=== PATIENT | female | born 1965 | race Caucasian/White ===

== ENCOUNTER 2022-07-23 14:53 | Emergency (ER) | payer OTHER ==
[2022-07-23] MEDS ORDERED: Sodium Chloride 0.9% 1,000 ML IV STA (15:20)
[2022-07-23] MEDS ORDERED: Ondansetron 4 MG/2 ML SDV IVPUSH ONE (15:20)
[2022-07-23] MEDS ORDERED: HYDROmorphone 0.5 MG/0.5 ML Syringe IVPUSH ONE (15:21)
[2022-07-23 15:39] LABS: BASOPHILS ABSOLUTE AUTO 0.02 K/mm3 (0.01-0.08); BASOPHILS PERCENT AUTO 0.2 % (0.1-1.2); EOSINOPHILS ABSOLUTE AUTO 0.02 K/mm3 (0.04-0.36); EOSINOPHILS PERCENT AUTO 0.2 (0.7-5.8); HEMATOCRIT 37.6 % (34.1-44.9); HEMOGLOBIN 12.3 gm/dl (11.2-15.7); IMMATURE GRAN ABSOLUTE AUTO 0.03 K/mm3 (0.00-0.10); IMMATURE GRAN PERCENT AUTO 0.3 % (<=1.0); LYMPHOCYTES ABSOLUTE AUTO 1.39 K/mm3 (1.18-3.74); LYMPHOCYTES PERCENT AUTO 11.7 % (19.3-51.7); MEAN CORPUSCULAR HEMOGLOBIN 28.2 pg (25.6-32.2); MEAN CORPUSCULAR HGB CONC 32.7 g/dl (32.2-35.5); MEAN CORPUSCULAR VOLUME 86.2 fl (79.4-94.8); MEAN PLATELET VOLUME 10.2 fl (9.4-12.3); MONOCYTES ABSOLUTE AUTO 0.51 K/mm3 (0.24-0.36); MONOCYTES PERCENT AUTO 4.3 % (4.7-12.5); NEUTROPHILS ABSOLUTE AUTO 9.94 K/mm3 (1.56-6.13); NEUTROPHILS PERCENT AUTO 83.3 % (34.0-71.1); PLATELET COUNT,PLT 315 K/mm3 (182-369); RED BLOOD CELL COUNT 4.36 M/mm3 (3.98-5.22); WHITE BLOOD CELL COUNT,WBC 11.91 K/mm3 (3.98-10.04)
[2022-07-23] MEDS: Sodium Chloride 0.9% 10 ML Syringe FLUSH PRN ×2 (15:47→15:53)
[2022-07-23] MEDS ORDERED: Iopamidol 612 MG/ML 100 ML Bottle IVPUSH ONE (15:52)
[2022-07-23 16:01] LABS: ALBUMIN 3.7 g/dl (3.4-5.0); BILIRUBIN TOTAL 0.4 mg/dL (0.2-1.0); BUN/CREATININE RATIO 14.3 (14-18); CALCIUM 9.1 mg/dL (8.5-10.1); CREATININE 1.4 mg/dL (0.55-1.02); EST CRCL DRUG DOSING (CG) 47.45 mL/min; PROTEIN TOTAL,TP 7.4 g/dl (6.4-8.2)
[2022-07-23] MEDS ORDERED: Famotidine 20 MG/2 ML SDV IVPUSH ONE (17:17)
[2022-07-23] MEDS ORDERED: Ketorolac 30 MG/ML SDV IVPUSH ONE (17:17)
[2022-07-23 17:55] LABS: APPEARANCE,URINE CLEAR (Clear); BILIRUBIN,URINE NEGATIVE (Negative); COLOR,URINE LIGHT YELLOW (Yellow); GLUCOSE,URINE NEGATIVE (Negative); KETONES,URINE NEGATIVE (Negative); LEUKOCYTE ESTERASE,URINE NEGATIVE (Negative); NITRITE,URINE NEGATIVE (Negative); OCCULT BLOOD,URINE 2+ (Negative); PROTEIN,URINE TRACE (Negative); UROBILINOGEN,URINE 0.2 (0.2-1.0)
[2022-07-23 18:07] LABS: BACTERIA,URINE FEW /hpf (FEW); MUCUS,URINE FEW /hpf (FEW); RBC,URINE 75-100 /hpf (0-5); SQUAMOUS EPITHELIAL CELLS,UR 0-5 /hpf (0-5); WBC,URINE 0-5 /hpf (0-5)
== END 2022-07-23 18:50 | disposition home or self-care (01) ==
LOC: JD.ED 14:53
DX: N13.2 Hydronephrosis with renal and ureteral calculous obstruction (principal); E11.9 Type 2 diabetes mellitus without complications; Z91.040 Latex allergy status; Z79.84 Long term (current) use of oral hypoglycemic drugs; Z79.899 Other long term (current) drug therapy; Z86.16 Personal history of COVID-19
CPT/HCPCS: 36415; 74177; 80053; 81001; 83690; 85025; 96361; 96374; 96375; 99284; J1170; J1885; J2405; J3490; J7030; Q9967

== ENCOUNTER 2022-07-25 16:40 | Emergency (ER) | payer OTHER ==
[2022-07-25 17:11] LABS: APPEARANCE,URINE CLEAR (Clear); BILIRUBIN,URINE NEGATIVE (Negative); COLOR,URINE YELLOW (Yellow); GLUCOSE,URINE 1+ (Negative); KETONES,URINE NEGATIVE (Negative); LEUKOCYTE ESTERASE,URINE TRACE (Negative); NITRITE,URINE NEGATIVE (Negative); OCCULT BLOOD,URINE 2+ (Negative); PROTEIN,URINE TRACE (Negative); UROBILINOGEN,URINE 0.2 (0.2-1.0)
[2022-07-25 17:23] LABS: BACTERIA,URINE MANY /hpf (FEW); RBC,URINE 30-40 /hpf (0-5); SQUAMOUS EPITHELIAL CELLS,UR 0-5 /hpf (0-5); WBC,URINE 50-75 /hpf (0-5)
[2022-07-25 17:24] LABS: MUCUS,URINE NOT SEEN /hpf (FEW)
[2022-07-25 17:46] LABS: BASOPHILS ABSOLUTE AUTO 0.02 K/mm3 (0.01-0.08); BASOPHILS PERCENT AUTO 0.2 % (0.1-1.2); EOSINOPHILS ABSOLUTE AUTO 0.03 K/mm3 (0.04-0.36); EOSINOPHILS PERCENT AUTO 0.2 (0.7-5.8); HEMATOCRIT 37.1 % (34.1-44.9); HEMOGLOBIN 12.1 gm/dl (11.2-15.7); IMMATURE GRAN ABSOLUTE AUTO 0.02 K/mm3 (0.00-0.10); IMMATURE GRAN PERCENT AUTO 0.2 % (<=1.0); LYMPHOCYTES ABSOLUTE AUTO 1.54 K/mm3 (1.18-3.74); LYMPHOCYTES PERCENT AUTO 11.7 % (19.3-51.7); MEAN CORPUSCULAR HEMOGLOBIN 28.2 pg (25.6-32.2); MEAN CORPUSCULAR HGB CONC 32.6 g/dl (32.2-35.5); MEAN CORPUSCULAR VOLUME 86.5 fl (79.4-94.8); MEAN PLATELET VOLUME 9.9 fl (9.4-12.3); MONOCYTES ABSOLUTE AUTO 1.05 K/mm3 (0.24-0.36); NEUTROPHILS ABSOLUTE AUTO 10.49 K/mm3 (1.56-6.13); NEUTROPHILS PERCENT AUTO 79.7 % (34.0-71.1); PLATELET COUNT,PLT 305 K/mm3 (182-369); RED BLOOD CELL COUNT 4.29 M/mm3 (3.98-5.22); WHITE BLOOD CELL COUNT,WBC 13.15 K/mm3 (3.98-10.04)
[2022-07-25] MEDS ORDERED: Sodium Chloride 0.9% 1,000 ML IV ONE (17:55)
[2022-07-25] MEDS ORDERED: Ondansetron 4 MG/2 ML SDV IVPUSH ONE (17:55)
[2022-07-25] MEDS ORDERED: HYDROmorphone 0.5 MG/0.5 ML Syringe IVPUSH ONE (17:55)
[2022-07-25 18:06] LABS: ALBUMIN 3.8 g/dl (3.4-5.0); ANION GAP 15.1 (5-15); BILIRUBIN TOTAL 0.6 mg/dL (0.2-1.0); BUN/CREATININE RATIO 10.6 (14-18); C-REACTIVE PROTEIN 4.3 mg/dL (<1.0); CALCIUM 8.9 mg/dL (8.5-10.1); CREATININE 1.7 mg/dL (0.55-1.02); EST CRCL DRUG DOSING (CG) 39.08 mL/min; POTASSIUM,K 4.1 mEq/L (3.5-5.1); PROTEIN TOTAL,TP 7.7 g/dl (6.4-8.2)
[2022-07-25 20:45] LABS: APPEARANCE,URINE CLEAR (Clear); BILIRUBIN,URINE NEGATIVE (Negative); COLOR,URINE YELLOW (Yellow); GLUCOSE,URINE 2+ (Negative); KETONES,URINE NEGATIVE (Negative); LEUKOCYTE ESTERASE,URINE NEGATIVE (Negative); NITRITE,URINE NEGATIVE (Negative); OCCULT BLOOD,URINE NEGATIVE (Negative); PROTEIN,URINE 1+ (Negative); UROBILINOGEN,URINE 0.2 (0.2-1.0)
[2022-07-25 20:57] LABS: BACTERIA,URINE MANY /hpf (FEW); MUCUS,URINE FEW /hpf (FEW); SQUAMOUS EPITHELIAL CELLS,UR 0-5 /hpf (0-5)
[2022-07-25] MEDS ORDERED: methylPREDNISolone Sodium Succinate 125 MG/2 ML SDV IVPUSH ONE (21:25)
== END 2022-07-25 22:09 | disposition home or self-care (01) ==
LOC: JD.ED 16:40
DX: N13.2 Hydronephrosis with renal and ureteral calculous obstruction (principal); E11.9 Type 2 diabetes mellitus without complications; Z86.16 Personal history of COVID-19; Z98.890 Other specified postprocedural states; Z91.040 Latex allergy status; Z79.899 Other long term (current) drug therapy; Z79.84 Long term (current) use of oral hypoglycemic drugs
CPT/HCPCS: 36415; 76775; 80053; 81001; 85025; 86140; 87086; 96361; 96374; 96375; 99284; J1170; J2405; J2930; J7030; 87088; 87186

== ENCOUNTER 2022-07-28 16:39 | Emergency (ER) | payer OTHER ==
[2022-07-28] MEDS ORDERED: HYDROmorphone 1 MG/ML Syringe IVPUSH STA (17:05)
[2022-07-28] MEDS ORDERED: Ondansetron 4 MG/2 ML SDV IVPUSH ONE (17:05)
[2022-07-28] MEDS ORDERED: Sodium Chloride 0.9% 1,000 ML IV SCH (17:15)
[2022-07-28] MEDS ORDERED: cefTRIAXone 2 GM in Sodium Chloride 0.9% 100 ML IV ONE (17:15)
[2022-07-28] MEDS ORDERED: Ketorolac 30 MG/ML SDV IVPUSH ONE (17:15)
[2022-07-28 17:51] LABS: BASOPHILS ABSOLUTE AUTO 0.01 K/mm3 (0.01-0.08); BASOPHILS PERCENT AUTO 0.1 % (0.1-1.2); EOSINOPHILS PERCENT AUTO 0.8 (0.7-5.8); HEMATOCRIT 32.3 % (34.1-44.9); IMMATURE GRAN ABSOLUTE AUTO 0.09 K/mm3 (0.00-0.10); IMMATURE GRAN PERCENT AUTO 0.7 % (<=1.0); LYMPHOCYTES ABSOLUTE AUTO 0.57 K/mm3 (1.18-3.74); LYMPHOCYTES PERCENT AUTO 4.6 % (19.3-51.7); MEAN CORPUSCULAR HEMOGLOBIN 28.3 pg (25.6-32.2); MEAN CORPUSCULAR HGB CONC 32.8 g/dl (32.2-35.5); MEAN CORPUSCULAR VOLUME 86.4 fl (79.4-94.8); MEAN PLATELET VOLUME 11.4 fl (9.4-12.3); MONOCYTES ABSOLUTE AUTO 0.37 K/mm3 (0.24-0.36); NEUTROPHILS ABSOLUTE AUTO 11.12 K/mm3 (1.56-6.13); NEUTROPHILS PERCENT AUTO 90.8 % (34.0-71.1); RED BLOOD CELL COUNT 3.74 M/mm3 (3.98-5.22); WHITE BLOOD CELL COUNT,WBC 12.26 K/mm3 (3.98-10.04)
[2022-07-28 18:09] LABS: A/G RATIO 0.6 (1-2); ALBUMIN 2.7 g/dl (3.4-5.0); BILIRUBIN TOTAL 0.8 mg/dL (0.2-1.0); BUN/CREATININE RATIO 17.5 (14-18); CALCIUM 8.4 mg/dL (8.5-10.1); CREATININE 3.2 mg/dL (0.55-1.02); EST CRCL DRUG DOSING (CG) 20.76 mL/min; PROTEIN TOTAL,TP 6.9 g/dl (6.4-8.2)
[2022-07-28 18:10] LABS: HEMOGLOBIN 10.6 gm/dl (11.2-15.7)
[2022-07-28 18:11] LABS: PLATELET COUNT,PLT 167 K/mm3 (182-369)
[2022-07-28] MEDS ORDERED: Sodium Chloride 0.9% 1,000 ML IV ONE (18:40)
[2022-07-28 19:33] LABS: LACTIC ACID 0.9 mmol/L (0.4-2.0)
[2022-07-28 19:39] LABS: APPEARANCE,URINE SLT CLOUDY (Clear); BILIRUBIN,URINE 1+ (Negative); COLOR,URINE YELLOW (Yellow); GLUCOSE,URINE NEGATIVE (Negative); KETONES,URINE NEGATIVE (Negative); LEUKOCYTE ESTERASE,URINE NEGATIVE (Negative); NITRITE,URINE NEGATIVE (Negative); OCCULT BLOOD,URINE TRACE-INTACT (Negative); PH,URINE 5.5 (5.0-8.0); PROTEIN,URINE 2+ (Negative); UROBILINOGEN,URINE 0.2 (0.2-1.0)
[2022-07-28 20:00] LABS: AMORPHOUS SEDIMENT,URINE MODERATE /hpf (NOT SEEN); BACTERIA,URINE MODERATE /hpf (FEW); MUCUS,URINE NOT SEEN /hpf (FEW); RBC,URINE 0-5 /hpf (0-5); SQUAMOUS EPITHELIAL CELLS,UR 0-5 /hpf (0-5)
[2022-07-29 19:43] LABS: SLIDE REVIEW ABNORMAL SMEAR
== END 2022-07-28 20:55 ==
LOC: JD.ED 16:39
DX: N13.2 Hydronephrosis with renal and ureteral calculous obstruction (principal); N30.00 Acute cystitis without hematuria; N17.9 Acute kidney failure, unspecified; E11.9 Type 2 diabetes mellitus without complications; Z86.16 Personal history of COVID-19; Z91.040 Latex allergy status; Z79.899 Other long term (current) drug therapy; Z79.84 Long term (current) use of oral hypoglycemic drugs
CPT/HCPCS: 36415; 51702; 74176; 80053; 81001; 83605; 85025; 87040; 87077; 87086; 87186; 96361; 96365; 96375; 99285; J0696; J1170; J1885; J2405; J3490; J7030; 99284